=== PATIENT | male | born 1940 ===

== ENCOUNTER 2017-06-26 15:01 | Emergency (ER) | payer MEDICARE ==
[2017-06-26 15:43] VITALS: RESP 18; TEMP 97; O2SAT 98
--- NOTE | 2017-06-26 16:18 | ED PDOC ---
HPI: Headache Time Seen by Provider: 06/26/17 15:48 Chief Complaint (Nursing): Headache Chief Complaint (Provider): Headache History Per: Patient History/Exam Limitations: no limitations Onset/Duration Of Symptoms: Days (x4) Current Symptoms Are (Timing): Still Present Pain Scale Rating Of: 7 Associated Symptoms: denies: Nausea, Vomiting Additional Complaint(s): Percy Linares is a 77 year old male, with a past medical history of dementia and Hypertension, who was referred by PMD for CT of head due to headache onset for 4 days since starting on Plavix. PMD started patient on Plavix due to work up for dementia. Patient denies any trauma, nausea, vomit or change in mental status. No further medical complaints. PMD: Raman Cao Past Medical History Reviewed: Historical Data, Nursing Documentation, Vital Signs Vital Signs: Last Vital Signs Temp 97 F L 06/26/17 15:40 Pulse 62 06/26/17 15:40 Resp 18 06/26/17 15:40 BP 161/71 H 06/26/17 15:40 Pulse Ox 98 06/26/17 15:40 - Medical History PMH: Dementia, HTN - Family History Family History: States: Unknown Family Hx - Home Medications Home Medications: Ambulatory Orders Medication Instructions Recorded traMADol [Ultram] 50 mg PO Q8 #10 tab 06/26/17 - Allergies Allergies/Adverse Reactions: Allergies Allergy/AdvReac Type Severity Reaction Status Date / Time No Known Allergies Allergy Verified 06/26/17 15:47 Review of Systems ROS Statement: Except As Marked, All Systems Reviewed And Found Negative Gastrointestinal: Negative for: Nausea, Vomiting Neurological: Positive for: Headache Physical Exam - Reviewed Nursing Documentation Reviewed: Yes Vital Signs Reviewed: Yes - Physical Exam Appears: Positive for: Well, Non-toxic, No Acute Distress Head Exam: Positive for: ATRAUMATIC, NORMAL INSPECTION, NORMOCEPHALIC Skin: Positive for: Normal Color, Warm, Dry Eye Exam: Positive for: EOMI, Normal appearance, PERRL Neck: Positive for: Normal, Painless ROM, Supple Cardiovascular/Chest: Positive for: Regular Rate, Rhythm. Negative for: Murmur Respiratory: Positive for: Normal Breath Sounds. Negative for: Respiratory Distress Extremity: Positive for: Normal ROM. Negative for: Deformity, Swelling Neurologic/Psych: Positive for: Alert, Oriented (x3). Negative for: nematologist II-XII (no focal deficits), Motor/Sensory Deficits - ECG O2 Sat by Pulse Oximetry: 98 (RA) Pulse Ox Interpretation: Normal Medical Decision Making Medical Decision Making: Initial Plan: --Head w/o contrast [CT] --reevaluation Scribe Attestation: Documented by Aguila Acosta, acting as a scribe for Shreyas Almanzar MD Provider Scribe Attestation: All medical record entries made by the Scribe were at my direction and personally dictated by me. I have reviewed the chart and agree that the record accurately reflects my personal performance of the history, physical exam, medical decision making, and the department course for this patient. I have also personally directed, reviewed, and agree with the discharge instructions and disposition. Disposition - Clinical Impression Clinical Impression: Headache - Patient ED Disposition Is Patient to be Admitted: No Counseled Patient/Family Regarding: Studies Performed, Diagnosis, Need For Followup, Rx Given - Disposition Referrals: Raman Cao MD [Family Provider] - Disposition: Routine/Home Disposition Time: 17:39 Condition: FAIR Prescriptions: traMADol [Ultram] 50 mg PO Q8 #10 tab Instructions: General Headache (ED) Forms: [employer] (Slovak)
--- NOTE | 2017-06-26 17:06 | CT ---
PROCEDURE: CT HEAD WITHOUT CONTRAST. HISTORY: r/o bleed COMPARISON: None available. TECHNIQUE: Axial computed tomography images were obtained through the head/brain without intravenous contrast. Radiation dose: Total exam DLP = 822.90 mGy-cm. This CT exam was performed using one or more of the following dose reduction techniques: Automated exposure control, adjustment of the mA and/or kV according to patient size, and/or use of iterative reconstruction technique. FINDINGS: HEMORRHAGE: No intracranial hemorrhage. BRAIN: No mass effect or edema. Remote lacunar infarct right basal ganglia involving the caudate head and anterior limb internal capsule. Mild periventricular white matter lucency consistent with age-related microvascular ischemic change. No evidence of acute infarct. Mild diffuse age-appropriate cerebral atrophy. VENTRICLES: Unremarkable. No hydrocephalus. CALVARIUM: Unremarkable. PARANASAL SINUSES: Chronic ethmoid sinusitis MASTOID AIR CELLS: Unremarkable as visualized. No inflammatory changes. OTHER FINDINGS: None. IMPRESSION: No intracranial mass, hemorrhage or evidence of acute infarct. Old right basal ganglia lacunar infarcts. Chronic white matter ischemic change. Mild age-appropriate atrophy.
[2017-06-26 17:46] VITALS: BP 149/70; PULSE 66
== END 2017-06-26 17:44 | disposition home or self-care (01) ==
LOC: H.ER 15:01
DX: R51 Headache (principal)